=== PATIENT | male | born 1980 | race Caucasian/White ===

== ENCOUNTER 2020-03-03 17:18 | Emergency (ER) | payer OTHER, SELFPAY ==
[~2020-03-03] VITALS: Ht 170.2 cm; Wt 72.6 kg
[2020-03-03 17:25] VITALS: BP 136/86
--- NOTE | 2020-03-03 17:41 | NUR ---
39 Y/O MALE FROM HOME C/O FATIGUE, GENERALIZED BODY ACHES, AND LOSS OF TASTE AND SMELL X 3 DAYS. PT STATES HIS MOTHER TESTED + FOR COVID-19 AND HIS ROOMMATE HAS SYMPTOMS. DENIES SOB/COUGH. AFEBRILE AT THIS TIME. RR EVEN AND UNLABORED, AWAKE AND ALERT. VSS MEDHX: DENIES
[2020-03-03 17:48] VITALS: BP 136/86
--- NOTE | 2020-03-03 17:48 | NUR ---
COVID-19 SWAB COLLECTED FROM PT
--- NOTE | 2020-03-03 17:48 | NUR ---
Patient discharged with v/s stable. Written and verbal after care instructions given and explained. Patient alert, oriented and verbalized understanding of instructions. Ambulatory with steady gait. All questions addressed prior to discharge. ID band removed. Patient advised to follow up with PMD. Rx of IBUPROFEN 600MG AND PROMETHAZINE given. Patient educated on indication of medication including possible reaction and side effects. Opportunity to ask questions provided and answered.
== END 2020-03-03 17:48 | disposition home or self-care (01) ==
LOC: EEVIPCON 17:18 → MED 17:18
DX: B34.9 Viral infection, unspecified (principal); Z20.828 Contact with and (suspected) exposure to other viral communicable diseases; R03.0 Elevated blood-pressure reading, without diagnosis of hypertension
CPT/HCPCS: 99283; U0003